=== PATIENT | male | born 1945 | race Caucasian/White ===

== ENCOUNTER 2019-12-04 10:18 | Outpatient (CLI) | payer MEDICARE, BC ==
[2019-12-04 10:47] LABS: Estimated GFR-MDRD - POC Greater than 90
--- NOTE | 2019-12-04 12:15 | CT ---
EXAM: CT chest with IV contrast CT abdomen and pelvis with and without IV contrast HISTORY: Hematuria, renal stones. Reported renal mass. COMPARISON: None FINDINGS: CT THORAX: Lungs: No consolidation, suspicious pulmonary nodule, or mass. Pleura: Suggestion of trace right pleural effusion posterior right cardiophrenic angle versus pleural thickening. Lymph nodes: No lymphadenopathy. Mediastinum: Vascular calcifications are seen in the thoracic aorta as well as involving the coronary arteries. Chest wall: No abnormalities CT ABDOMEN AND PELVIS: Liver: Within normal limits. Gallbladder: Within normal limits. \ Pancreas: Single punctate calcification in the head of the pancreas which may potentially be sequela of prior pancreatitis. Pancreas otherwise has a normal CT appearance. Spleen: Within normal limits. Adrenal glands: Within normal limits. Kidneys: Heterogeneously enhancing mass anterior aspect inferior pole right kidney measuring 4.3 cm c raniocaudal x3.7 cm AP x3.3 cm transverse. This is worrisome for renal cell carcinoma. Approximately 1 to 2 mm nonobstructing calculus is present in the midportion right kidney as well as in the anterior aspect midportion left kidney. A nonobstructing 10 mm calculus is seen in the inferior pole left kidney. A 1.7 cm hypodense lesion is seen in the midportion left kidney demonstrat ing fluid attenuation most compatible with a small cyst. Urinary Bladder: Mild mass effect at the base urinary bladder due to mild enlarged prostate gland whi ch measures 5.7 cm in transverse dimensions. Urinary bladder otherwise demonstrates a normal CT appearance. Bowel: Colonic diverticulosis. Loops of small bowel are normal in caliber. Adenopathy:No lymphadenopathy within the abdomen or pelvis. Peritoneum: There is a slightly heterogeneous hypodense mass with associated calcifications seen in t he right anterolateral aspect of the pelvis measuring 2.2 cm x 1.8 cm in greatest axial dimensions. There is no adjacent retraction of the mesentery. This mass does abut loops of small bowel in the rig ht aspect of the pelvis. Findings may represent a metastatic carcinoid tumor. Sclerosing mesenteritis is a possibility, this is usually located more centrally and there is no adjacent inflam matory changes or retraction of the mesentery. Metastatic lesion is also thought less likely. Abdominal wall: No abnormalities seen. Osseous structures: No suspicious lytic or sclerotic osseous lesion. Degenerative changes are seen in the spine. IMPRESSION: 1. Heterogeneously enhancing inferior pole right renal mass. Renal cell carcinoma is diagnosis of exc lusion. 2. Hypodense and slightly heterogeneous mass with associated calcifications in the right anterolatera l aspect of the pelvis which abuts loops of small bowel. Findings may represent a metastatic carcinoid tumor. Further evaluation with nuclear medicine Octreoscan is recommended. Other differenti al considerations are also a possibility as described above. 3. Nonobstructing bilateral renal calculi.
--- NOTE | 2019-12-04 14:11 | NM ---
WHOLE BODY BONE SCAN: HISTORY: Renal mass suspicious for carcinoma. RADIOPHARMACEUTICAL: 30 mCi technetium 99m-MDP injected intravenously COMPARISON: None CORRELATION: CT chest, abdomen and pelvis dated 12/04/2019. FINDINGS: There scattered degenerative activity in the appendicular skeleton. No other abnormal areas of tracer localization are seen in the skeleton to suggest metastatic disease . Tracer excretion through the kidneys is within normal limits. IMPRESSION: No scintigraphic evidence of osseous metastatic disease.
[2019-12-04] MEDS ORDERED: Iopamidol 370 76% 100 ML VIAL ONE (14:58)
== END 2019-12-04 10:19 | disposition home or self-care (01) ==
LOC: CT 10:18
PROVIDERS: ATTEND Urology
DX: N20.0 Calculus of kidney (principal); N28.89 Other specified disorders of kidney and ureter; R93.89 Abnormal findings on diagnostic imaging of other specified body structures
CPT/HCPCS: 71260; 74178; 78306; 82565; A9503; Q9967

== ENCOUNTER 2020-01-01 12:38 | Outpatient (CLI) | payer MEDICARE, BC ==
--- NOTE | 2020-01-02 15:58 | NM ---
NM Tumor Localization Octreo HISTORY: Right lower quadrant abdominal mass seen on CT scan of 12/04/2019 COMPARISON: CT chest, abdomen and pelvis dated 12/04/2019 Radiopharmaceutical: 5.6 mCi indium-111 labeled pentetreotide FINDINGS: There is physiologic activity in the liver, spleen, kidneys, GI tract. No abnormal areas of tracer lo calization are seen. No abnormal tracer localization is noted in the right lower quadrant/upper pelvic mass seen on the CT scan. IMPRESSION: No evidence of somatostatin avid tumor.
== END 2020-01-01 12:39 | disposition home or self-care (01) ==
LOC: NM 12:38
PROVIDERS: ATTEND Urology
DX: R19.03 Right lower quadrant abdominal swelling, mass and lump (principal)
CPT/HCPCS: 78802; 78803; A4641; A9572

== ENCOUNTER 2020-01-30 06:16 | Outpatient (CLI) | payer MEDICARE, BC ==
--- NOTE | 2020-01-30 11:43 | RAD ---
XR Chest Pa Lat STANDARD HISTORY: Preoperative evaluation COMPARISON: 10/28/2019 FINDINGS: The heart size is normal. The lungs are well expanded without focal areas of consolidation, pneumothorax or pleural effusions. IMPRESSION: No radiographic evidence of acute cardiopulmonary process.
[2020-01-30 12:19] LABS: Hemoglobin 13.2 g/dL (14.0-18.0); Mean Corpuscular HGB CONC 35.2 G/DL (32.0-36.0); Mean Corpuscular Hemoglobin 29.9 PG (27.0-33.0); Mean Corpuscular Volume 84.8 fl (80.0-100.0); Mean Platelet Volume 9.9 fl (7.4-10.4); Platelet Count 229 10x3/uL (130-400); RBC Distribution Width 13.5 % (11.5-14.5); Red Blood Cell (RBC) Count 4.42 10x6/uL (4.40-5.80); White Blood Cell (WBC) Count 5.9 10x3/uL (4.5-11.0)
[2020-01-30 12:28] LABS: Anion Gap 15 mmol/L (10-20); BUN (Urea Nitrogen) 16 mg/dL (8.4-25.7); Calc. Creatinine Clearance 0 mL/min (70-130); Carbon Dioxide 25 mmol/L (23-31); Chloride 101 mmol/L (98-107); Estimated GFR-MDRD 72; Glucose 273 mg/dL (83-110); Potassium 5.4 mmol/L (3.5-5.1); Sodium 136 mmol/L (136-145)
[2020-01-30 12:46] LABS: Bilirubin Neg (Negative); Blood, Urine Negative (Negative); Clarity Clear (Clear); Glucose, Urine (Dipstick) >=1000 mg/dL (Negative); Ketone, Urine Negative (Negative); Leukocyte Negative (Negative); Nitrite Negative (Negative); Protein, Urine (Dipstick) Negative (Neg-Trace); Specific Gravity, Urine 1.025 (1.002-1.036); Urobilinogen Normal mg/dL (Less than 2)
[2020-01-30 12:56] LABS: PTT 26.2 sec (22.0-33.0); Prothrombin Time 10.9 sec (9.5-12.1)
[2020-01-30 12:57] LABS: Bacteria/HPF None Seen HPF (None Seen); RBC/HPF 0-3 HPF (0-3); Squamous Epithelial None Seen HPF (0-3); WBC/HPF None Seen HPF (0-3)
[2020-01-31 12:05] LABS: SARS-CoV-2 MS2 Positive; SARS-CoV-2 N Gene Negative; SARS-CoV-2 S Gene Negative; SARS-CoV-2 by NAA Not Detected (NotDetected); SARS-CoV-2 orf1ab Negative
--- NOTE | 2020-02-05 02:13 | EKG ---
Test Reason : PREOP Blood Pressure : / mmHG Vent. Rate : 054 BPM Atrial Rate : 054 BPM P-R Int : 178 ms QRS Dur : 092 ms QT Int : 448 ms P-R-T Axes : 068 021 002 degrees QTc Int : 424 ms Sinus bradycardia Septal infarct , age undetermined Abnormal ECG When compared with ECG of 28-OCT-2019 07:54, Septal infarct is now Present Confirmed by MIRSOLAVA WOODS, SHADIA ([id number]) on 02/05/2020 2:13:10 AM Referred By: Keke ALAMO Confirmed By:SHADIA COLORADO MD
== END 2020-01-30 06:17 | disposition home or self-care (01) ==
LOC: LABBT 06:16
PROVIDERS: ATTEND Urology
DX: Z01.818 Encounter for other preprocedural examination (principal); Z20.828 Contact with and (suspected) exposure to other viral communicable diseases; N28.89 Other specified disorders of kidney and ureter
CPT/HCPCS: 71046; 80048; 81001; 85027; 85610; 85730; 86850; 86900; 86901; 86920; 87086; 93005; U0003; 87635; 93010

== ENCOUNTER 2020-01-30 11:30 | Inpatient (IN) | payer MEDICARE, BC ==
--- NOTE | 2020-02-01 05:51 | HP ---
HISTORY OF PRESENT ILLNESS: Dell Perez is a 74-year-old male patient from [place]. He had urolithiasis. CAT scan demonstrated a right renal mass, mid anterior. He has seen Dr. Mullen, in fact has appointment to see her this afternoon. Plan is for a right total or heminephrectomy. During his evaluation, he was noted in the right upper pelvis, scan showed a 2.2 x 1.8 cm mass adjacent to the small bowel without distortion of the mesentery. The patient had a colonoscopy in the last year and a half in [place] that was normal. He went on to have a CAT scan of the chest with IV contrast without significant findings except for the mass in the pelvis as described. No evidence of metastatic disease. He had a bone scan that is negative for metastatic disease. He had a nuclear medicine localization octreotide scan, negative for any visualization of somatostatin avid tumor. The patient denies any bowel problems or dysfunction. As stated above, he had a colonoscopy in the last year and a half in [place]. He has had some epigastric discomfort intermittently over the past several years. He has discussed with the opticianry teacher and may have an upper endoscopy in the future. This is not bothering him and not progressive and may esophageal spasm. LABORATORIES: 12/13/2019, comprehensive metabolic profile normal, namely BUN 17, creatinine 1.06. Hemoglobin A1c 7.6. ALLERGIES: NONE. TOBACCO: None. ALCOHOL: Rarely. MEDICATIONS: 1. Metformin 1000 mg a day. 2. Terazosin 10 mg a day. 3. Spironolactone 50 mg a day. 4. Lumigan drops. 5. Combigan drops. PAST MEDICAL HISTORY: Diabetes mellitus, urolithiasis, hypertension. PAST SURGICAL HISTORY: Tonsillectomy, urinary stone removal with stent, right inguinal hernia repair, colonoscopy a year and a half ago in [place]. SOCIAL HISTORY: The patient is retired body shop, wrecking yard work. He lives in [place]. FAMILY HISTORY: Noncontributory. REVIEW OF SYSTEMS: [place]-point noncontributory. Negative cardiac stress test done in the last few weeks by Dr. Ziegler. CARDIAC: Asymptomatic. PHYSICAL EXAMINATION: VITAL SIGNS: Weight 197 pounds, 6 feet 1 inch, and 26 BMI. Blood pressure 134/59, pulse 81, temperature 97.5 degrees. HEAD, EARS, EYES, NOSE, and THROAT: Unremarkable. LUNGS: Clear to auscultation. CARDIAC: Regular rate and rhythm with no murmur, rub, or gallop. ABDOMEN: Soft, nontender. No palpable masses. EXTREMITIES: Unremarkable. No lymphadenopathy in neck, axilla, or groins. ASSESSMENT AND PLAN: 1. Right pelvic mass. This may represent a Meckel diverticulum or other etiology. We would plan exploration at the time of his right catracho or total nephrectomy with Dr. Mullen. Approach possibilities include laparoscopic with small incision versus midline pending discussion with Dr. Mullen. Risks of infection, bleeding, reoperation, anastomotic bowel leakage if performed. He understands and questions answered. 2. Right kidney mass, most likely renal cell carcinoma. Treatment per Dr. Mullen. 3. Diabetes mellitus, type 2. 4. Hypertension. Job ID: [id number]
[2020-02-01 10:54] VITALS: BMI 25.7
[2020-02-04] MEDS ORDERED: Midazolam HCl 2 mg/2 ml Vial ONE (06:33)
[2020-02-04] MEDS ORDERED: Fentanyl 100 MCG/2 ML VIAL ONE (06:33)
[2020-02-04] MEDS ORDERED: Fentanyl 250 MCG/5 ML VIAL ONE (06:39)
[2020-02-04] MEDS ORDERED: Gentamicin 80 MG/2 ML VIAL ONE (06:42)
[2020-02-04] MEDS ORDERED: Methylene Blue 50 MG/10 ML AMPUL ONE (06:43)
[2020-02-04] MEDS ORDERED: Ondansetron HCl/PF 4 MG/2 ML Vial IVP PRN (07:05)
[2020-02-04] MEDS ORDERED: Promethazine HCl 25 MG/ML VIAL SLOW IVP PRN (07:05)
[2020-02-04] MEDS ORDERED: Promethazine HCl 25 MG/ML VIAL IM PRN ×2 (07:05→07:45)
[2020-02-04] MEDS ORDERED: Levofloxacin 500 mg/D5W 100 ml Premix Bag ONE (07:08)
[2020-02-04] MEDS ORDERED: Sodium Chloride 0.9% 0 ML ONE (07:08)
[2020-02-04] MEDS ORDERED: diphenhydrAMINE 50 MG/ML VIAL IM PRN (07:45)
[2020-02-04] MEDS ORDERED: Promethazine HCl 25 MG SUPP PR PRN (07:45)
[2020-02-04] MEDS ORDERED: Naloxone HCl 0.4 mg/ml Vial IVP PRN (07:45)
[2020-02-04] MEDS ORDERED: traMADol HCl 50 MG TAB PO PRN (07:45)
[2020-02-04] MEDS ORDERED: Ondansetron PF 4 MG/2 ML Vial IVP PRN (07:45)
[2020-02-04] MEDS ORDERED: Hydrocerin (Eucerin) Cream 120 gm Jar TOP PRN (07:45)
[2020-02-04] MEDS ORDERED: Zolpidem Tartrate 5 MG TAB PO PRN (07:45)
[2020-02-04] MEDS ORDERED: fentaNYL Citrate/PF 500 MCG, Bupivacaine 10 ML in Sodium Chloride 0.9% 80 ML EPIDURAL SCH (07:45)
[2020-02-04] MEDS ORDERED: Naloxone HCl 0.4 mg/ml Vial IV PRN (07:45)
[2020-02-04] MEDS ORDERED: HYDROcodone/Acetaminophen 5/325 mg Tablet PO PRN (07:45)
[2020-02-04] MEDS ORDERED: Bupivacaine 0.25% HCL 30 ML VIAL ONE (08:04)
[2020-02-04] MEDS ORDERED: SUGAMMADEX SODIUM 500 MG/5 ML VIAL ONE (08:51)
[2020-02-04] MEDS ORDERED: Dextrose 50% Abboject 50 ML SYRINGE SLOW IVP PRN (09:11)
[2020-02-04] MEDS ORDERED: hydrALAZINE 20 MG/ML VIAL SLOW IVP PRN ×2 (09:11)
[2020-02-04] MEDS ORDERED: Dextrose 5% in Water 1,000 ML IV PRN (09:11)
[2020-02-04] MEDS ORDERED: Docusate 100 MG CAP PO PRN (09:11)
[2020-02-04] MEDS ORDERED: Mag-Al 1200 mg/1200 mg/30 ML UDCUP PO PRN (09:11)
[2020-02-04] MEDS ORDERED: Acetaminophen 500 MG TAB PO PRN (09:11)
--- NOTE | 2020-02-04 09:28 | OP ---
DATE OF PROCEDURE: 02/04/2020 PREOPERATIVE DIAGNOSES: 1. A 74-year-old male with history of right mid to lower pole renal mass, measuring 4.3 x 3.7 cm, concerning for renal cell carcinoma. 2. Left lower pole nonobstructing renal calculi, 8 mm. 3. Rule out right lower quadrant pelvic mass. Postoperative diagnosis same Procedure: Right radical nephrectomy. Laparotomy ANESTHESIA: General. ESTIMATED BLOOD LOSS: 300 mL. IV FLUIDS: 1 L. URINE OUTPUT: 125xx COMPLICATIONS: None apparent. DRAINS: 16-Tajik Resendiz catheter to gravity. SPECIMEN: Right kidney contains Gerota's fascia, right proximal ureter. INDICATIONS FOR PROCEDURE AND HISTORY: Mr. Perez is a pleasant 74-year-old male who is well known to me with history of right ureteral calculi, treated and resolved. He was incidentally found to have a right mid to lower pole renal mass. We discussed options of heminephrectomy versus total nephrectomy. He desired more definitive approach simple in nature. We discussed options of right partial versus total nephrectomy and desired more simple approach. Moreover, on further workup, he was found to have a right lower quadrant abdominal mass. This workup demonstrated no evidence for somatostatin avid tumor. General Surgery available for possible small bowel obstruction and presents today for laparotomy and right total radical nephrectomy. Risks and complications of procedure had been discussed with him in detail including, but not limited to: Bleeding, pain, infection, injury to adjacent organs, such as major vasculature, bony prominences, liver bowel contents, chronic renal insufficiency, possible need for permanent and temporary hemodialysis, renal insufficiency, PE, DVT, and perioperative morbidity. All options were discussed with him in detail and he desired to proceed. DESCRIPTION OF PROCEDURE: After an informed consent was signed, the patient was taken to the operating room and placed in supine position with the genital area prepped and draped in the usual surgical sterile fashion. The abdominal areas were formally prepped and draped from the xiphoid to the pubic symphysis. A 16-Tajik indwelling Resendiz catheter was placed. An epidural was placed in the preoperative area. At this time, we made a midline laparotomy incision from the level of the xiphoid to the lower quadrant just distal to the umbilicus. The anterior fascia was opened to the limits of skin incision. We entered the peritoneal cavity. We mobilized the bowel contents and used Bookwalter retractors. Dr. Mattson was present for the laparotomy portion. Please see his dictation for laparotomy portion to rule out pelvic mass. The white line of Toldt was visualized and the colon was mobilized medially to the level of hepatic flexure. The duodenum was Kocherized. The great vessels were identified. We isolated the gonadal vein, which was doubly ligated with 3-0 silk/clips and divided. The ureter was isolated with sharp and blunt dissection and traced to the level of the renal pelvis. The posterior in the upper pole was mobilized with blunt and sharp dissection using LigaSure, cautery as needed. At the end, we further developed the upper pole, what remained was the only attachment went to the hilum was a single artery and vein. Using a laparoscopic stapler with a marin load, we ligated and divided the renal hilum. Staple lines were dry and inspected. FloSeal and hemostatic agents were placed in the renal hilum, which demonstrated good hemostasis. The right adrenal gland was left in situ as the tumor was in the mid to lower pole. The ureter was then completely divided using multiple large clips. The specimen including the proximal ureter, Gerota's content, and the kidney itself was delivered intact. The renal fossa was inspected, demonstrating no acute bleeding of concern. The area was copiously irrigated. The bowel contents were then returned to its normal anatomical position. The incision was then closed with one layer using 0 PDS in a running fashion and skin sammy were utilized for skin. He tolerated the procedure well and transported to the recovery room in stable condition. Job ID: [id number] [facility]
[2020-02-04 10:02] LABS: #Eosinphils 0.1 thou/uL (0.0-0.7); #Monocytes 0.2 thou/uL (0.11-0.59); #Neutrophils 7.5 thou/uL (1.40-6.50); %Basophils 0.3 % (0.0-1.0); %Eosinophils 1.5 % (0.0-10.0); %Lymphocytes 11.6 % (21.0-51.0); %Monocytes 1.8 % (0.0-10.0); %Neutrophils 84.9 % (42.0-75.0); Hemoglobin 12.2 g/dL (14.0-18.0); Mean Corpuscular HGB CONC 34.5 g/dL (32.0-36.0); Mean Corpuscular Hemoglobin 30.8 pg (27.0-31.0); Mean Corpuscular Volume 89.2 fL (78.0-98.0); Mean Platelet Volume 7.4 fL (7.4-10.4); Platelet Count 162 thou/uL (130-400); RBC Distribution Width 13.2 % (11.5-14.5); Red Blood Cell (RBC) Count 3.95 mill/uL (4.70-6.10); White Blood Cell (WBC) Count 8.9 thou/uL (4.8-10.8)
--- NOTE | 2020-02-04 10:08 | OP ---
DATE OF PROCEDURE: 02/04/2020 PREOPERATIVE DIAGNOSES: Pelvic mass, 3 cm, calcific, terminal ileal mesentery; right renal cell carcinoma. POSTOPERATIVE DIAGNOSES: Pelvic mass, 3 cm, calcific, terminal ileal mesentery; right renal cell carcinoma. PROCEDURE PERFORMED: Exploratory laparotomy, noting the small bowel to be without abnormality, appendix was normal, cecum was normal. Hernia plug noted from previous right inguinal hernia repair with a hernia plug mesh dangling in the abdominal cavity. ANESTHESIA: General anesthesia, epidural. TELEGRAPHER AGENT: Dr. Mullen. DESCRIPTION OF PROCEDURE: The patient was taken to the operating room, where under general and epidural anesthesia, abdomen was clipped of hair, prepared with ChloraPrep and draped in routine fashion. Incision was made about the midline, carried through skin and subcutaneous tissue, midline fascia, and abdominal cavity sharply. I then inspected the cecum and small bowel. Small bowel was entirely normal. Mesentery was normal. Appendix was normal. Right colon was normal. The calcific mass described on the CAT scan was not found. He did however have a hernia plug dangling in the abdominal cavity. I did then call the radiologist, and discussed the CAT scan, indeed, this mass found on CAT scan was the hernia plug, further intervention was not necessary. Dr. Mullen then proceeded to perform a right radical nephrectomy, in which I assisted her. At the end of the procedure, fascia closed with #1 PDS, skin with sammy. Sterile dressing applied. The patient tolerated the procedure well. Job ID: [id number]
[2020-02-04 10:19] LABS: Anion Gap 7 mmol/L (10-20); BUN (Urea Nitrogen) 8 mg/dL (8.4-25.7); Calc. Creatinine Clearance 80 mL/min (70-130); Calcium 7.9 mg/dL (7.8-10.44); Carbon Dioxide 29 mmol/L (23-31); Chloride 105 mmol/L (98-107); Estimated GFR-MDRD 71; Glucose 223 mg/dL (83-110); Potassium 5.5 mmol/L (3.5-5.1); Sodium 135 mmol/L (136-145)
[2020-02-04] MEDS ORDERED: Furosemide 40 MG/4 ML VIAL ONE (10:33)
[2020-02-04] MEDS: Sodium Chloride 0.9% 1,000 ML IV SCH ×2 (12:06→21:04)
[2020-02-04] MEDS ORDERED: ePHEDrine 50 MG/ML VIAL ONE (12:07)
[2020-02-04] MEDS ORDERED: Dexamethasone 20 MG/5 ML VIAL ONE (12:07)
[2020-02-04] MEDS ORDERED: Rocuronium Bromide 10 MG/ML (10ML VIAL) ONE (12:07)
[2020-02-04] MEDS ORDERED: PHENYLEPHRINE-NS 100 MCG/ML 10 ML SYRINGE ONE (12:07)
[2020-02-04] MEDS ORDERED: Ondansetron PF 4 MG/2 ML Vial ONE (12:07)
[2020-02-04] MEDS ORDERED: Lidocaine 1% PF 5 ML VIAL ONE (12:07)
[2020-02-04] MEDS ORDERED: Lidocaine 1.5% w/Epi 1:200K 30 ML VIAL (Epid Use) ONE (12:07)
[2020-02-04] MEDS ORDERED: PROPOFOL 200 MG/20 ML VIAL ONE (12:07)
[2020-02-04] MEDS ORDERED: Sodium Chloride 0.9% 100 ML ONE (12:08)
[2020-02-04] MEDS ORDERED: cefTRIAXone\\ROCEPHIN 1 GM VIAL ONE (12:08)
[2020-02-04] MEDS: cefTRIAXone\\ROCEPHIN 1 GM in Sodium Chloride 0.9% 100 ML IVPB SCH (12:10)
[2020-02-04 14:31] LABS: Potassium 4.4 mmol/L (3.5-5.1)
[2020-02-04] MEDS: Insulin Regular 300 UNITS/3 ML VIAL SC PRN (16:57)
--- NOTE | 2020-02-04 17:37 | CON ---
DATE OF CONSULTATION: PRIMARY CARE PHYSICIAN: Dr. Ras Lopez. CHIEF COMPLAINT: Medical management, status post nephrectomy. HISTORY OF PRESENT ILLNESS: The patient is a 74-year-old male with past medical history significant for diabetes mellitus, hypertension, renal mass, and BPH. Today he had a nephrectomy and exploratory lap completed. We have been consulted for medical management of his diabetes and blood pressure. The patient states that his diabetes is well controlled on his home medications. It was noted that his potassium this morning was 5.5, and he is currently on spironolactone. This was changed by Dr. Mullen today to Lasix, which has now resulted in his potassium being 4.4. PAST MEDICAL HISTORY: Diabetes mellitus, urolithiasis, hypertension, gout, renal mass, ED, BPH. PAST SURGICAL HISTORY: Tonsillectomy, urinary stone removal with stent, right inguinal hernia repair, colonoscopy. ALLERGIES: NO KNOWN DRUG ALLERGIES. MEDICATIONS: 1. Gabapentin 600 mg. 2. Terazosin 10 mg. 3. Combigan eye drops twice a day. 4. Lumigan eye drops daily. 5. Metformin 500 mg p.o. daily. 6. Spironolactone 50 mg p.o. daily. SOCIAL HISTORY: The patient lives with his significant other whom he refers to as his . He denies smoking or drug use. He does drink nightly he states. FAMILY HISTORY: Noncontributory to this day. REVIEW OF SYSTEMS: All other review of systems negative unless noted in HPI. PHYSICAL EXAMINATION: VITAL SIGNS: Temperature 97.4, pulse 69, respiratory rate 18, O2 saturation 100% on 2 L, blood pressure 138/74. HEENT: Head; atraumatic, normocephalic. ENT, extraocular muscles intact. PERRLA. NECK: Supple. Trachea midline. CARDIAC: Regular rate and rhythm with no murmur, rub, or gallop. RESPIRATORY: No rhonchi. No wheezes. No rales. Clear to auscultation bilaterally. ABDOMEN: Soft, tender at surgical site. Midline abdominal incision. EXTREMITIES: No edema. No cyanosis. LABORATORY DATA: Sodium 135, potassium 5.5, anion gap 7, BUN 8, glucose 223, calcium 7.9. WBCs 8.9, hemoglobin 12.2, hematocrit 35.3. EKG shows sinus valerie at 54 beats per minute. IMPRESSION AND PLAN: 1. Hyperkalemia, acute. This has since resolved. The patient has been changed from spironolactone to Lasix 40 mg daily. When discussing with the patient, he states that he was started on the spironolactone for hypertension. However, he states that his blood pressure has been a lot better now that the stressors in his life have changed, may be worth considering in the future coming off the diuretic entirely if it is no longer needed. However, we will continue to follow him on his Lasix and see how he does with his blood pressures and his potassium levels while here. We will recheck his levels in the morning. 2. Hypertension, chronic. Vital signs currently stable at this time. We will continue to monitor vital signs throughout stay. Treat with home medications and any p.r.n. antihypertensives if needed. 3. Diabetes mellitus type 2. Monitor Accu-Cheks a.c. at bedtime. Cover with mild sliding scale insulin if necessary. Restart the patient's home medication while he is here in the hospital. 4. SCDs have been ordered for deep venous thrombosis prophylaxis. 5. The patient wishes to be a full code. His surrogate decision maker is his significant other, Preethi Diana. 6. This patient has been discussed with Dr. Sanchez. Job ID: [id number] [facility]
[2020-02-04] MEDS ORDERED: Insulin Regular 300 UNITS/3 ML VIAL SC PRN (18:02)
[2020-02-04] MEDS: Timolol 0.5% Ophth Soln 5 ml Bottle EA EYE SCH (21:03)
[2020-02-04] MEDS: Brimonidine Tartrate 0.2% Ophth Soln 5 ml Bottle EA EYE SCH (21:04)
[2020-02-04] MEDS: diphenhydrAMINE 25 MG CAP PO PRN (21:14)
[2020-02-05] MEDS: HYDROcodone/Acetaminophen 5/325 mg Tablet PO PRN ×3 (03:25→23:27)
[2020-02-05] MEDS: Sodium Chloride 0.9% 1,000 ML IV SCH ×2 (03:28→11:36)
[2020-02-05 05:43] LABS: #Monocytes 0.8 thou/uL (0.11-0.59); #Neutrophils 8.7 thou/uL (1.40-6.50); %Basophils 0.3 % (0.0-1.0); %Eosinophils 0.1 % (0.0-10.0); %Lymphocytes 9.5 % (21.0-51.0); %Monocytes 7.8 % (0.0-10.0); %Neutrophils 82.3 % (42.0-75.0); Hemoglobin 11.2 g/dL (14.0-18.0); Mean Corpuscular HGB CONC 33.7 g/dL (32.0-36.0); Mean Corpuscular Hemoglobin 30.1 pg (27.0-31.0); Mean Corpuscular Volume 89.1 fL (78.0-98.0); Mean Platelet Volume 8.2 fL (7.4-10.4); Platelet Count 169 thou/uL (130-400); RBC Distribution Width 13.1 % (11.5-14.5); Red Blood Cell (RBC) Count 3.73 mill/uL (4.70-6.10); White Blood Cell (WBC) Count 10.5 thou/uL (4.8-10.8)
[2020-02-05 06:02] LABS: Anion Gap 12 mmol/L (10-20); BUN (Urea Nitrogen) 15 mg/dL (8.4-25.7); Calc. Creatinine Clearance 58 mL/min (70-130); Calcium 7.9 mg/dL (7.8-10.44); Carbon Dioxide 27 mmol/L (23-31); Chloride 101 mmol/L (98-107); Estimated GFR-MDRD 48; Glucose 157 mg/dL (83-110); Potassium 4.5 mmol/L (3.5-5.1); Sodium 135 mmol/L (136-145)
[2020-02-05] MEDS ORDERED: Spironolactone 25 MG TAB PO SCH ×2 (08:00→09:00)
--- NOTE | 2020-02-05 08:01 | PRG ---
DATE OF SERVICE: 02/05/2020 SUBJECTIVE: The patient without complaints, required [place] adjunct to his fentanyl and epidural. Pain is adequately controlled. Denies nausea or vomiting. No flatus. Tolerating clears. OBJECTIVE: VITAL SIGNS: Stable at temperature 98.5, heart rate 60, respirations 16, O2 saturations 96%, blood pressure 128/67. I's and O's 1330 in and 2125 out, he is -790 mL. GENERAL: The patient is in no acute distress. HEART: Regular rate. LUNGS: Clear. ABDOMEN: Soft, mildly distended. Incision is clean, dry. Per nursing staff, the inferior aspect of the incision was draining some serosanguineous fluid. I could not actively express further discharge. Minimal oozing noted. Dressing reapplied. Bowel sounds are present, however, diminished. EXTREMITIES: No cyanosis, clubbing, or edema. No calf tenderness appreciated. LABORATORY DATA: White count is 10, hemoglobin 11.2, platelet 169. Potassium yesterday was 5.5, this morning is 4.5; creatinine 1.43. Blood sugars running in 200s to 140s. IMPRESSION AND PLAN: 1. Mr. Perez is a 74-year-old male, postop day #1 exploratory laparotomy, right radical nephrectomy. Pelvic mass has been ruled out, pain on prior CT. Pathology pending. 2. History of diabetes. 3. Hypertension. 4. Hyperkalemia, resolved. Appreciate hospitalist consult. I did transition from spironolactone, potassium-sparing diuretic to Lasix yesterday due to hyperkalemia. He is currently on Lasix 40 mg. If he does not require Lasix, it would be preferable, appreciate hospitalist monitoring his blood pressure for continuing diuretics if needed. I would prefer the patient off Lasix, if possible prefer hydrochlorothiazide as he does have history of recurrent kidney stone as Lasix does cause hypercalciuria. will continue epidural and titrate accordingly per Pain Service. Continue clear liquids for now. His bowel sounds are somewhat sluggish. patient is to be aggressively out of bed, walking program has been consulted. If there is mild decrease in H and H, we will hold off Lovenox for deep venous thrombosis pharmacologic prophylaxis. Continue SCDs, EMANI solano, aggressively out of bed. surgically stable. Job ID: [id number] [facility]
[2020-02-05] MEDS: diphenhydrAMINE 50 MG/ML VIAL IVP PRN ×2 (08:25→14:23)
[2020-02-05] MEDS: Terazosin HCl 5 MG CAP PO SCH (08:29)
[2020-02-05] MEDS: Timolol 0.5% Ophth Soln 5 ml Bottle EA EYE SCH ×2 (08:29→20:14)
[2020-02-05] MEDS: metFORMIN 500 MG TAB PO SCH (08:29)
[2020-02-05] MEDS: Brimonidine Tartrate 0.2% Ophth Soln 5 ml Bottle EA EYE SCH ×2 (08:30→20:14)
[2020-02-05] MEDS ORDERED: Non-Formulary Item 1 EACH (Bimatoprost [Lumigan] 5 ML Drops) EA EYE SCH (09:00)
[2020-02-05] MEDS ORDERED: Furosemide 40 MG TAB PO SCH (09:00)
[2020-02-05] MEDS ORDERED: Non-Formulary Item 1 EACH (Spironolactone [Spironolactone] 50 MG Tablet) PO SCH (09:00)
[2020-02-05] MEDS ORDERED: TERAZOSIN HCL 10 MG PO SCH (09:00)
[2020-02-05] MEDS ORDERED: Latanoprost 0.005% Ophth Soln 2.5 ml Bottle EA EYE SCH (09:00)
[2020-02-05] MEDS ORDERED: FLU VACC QS2020-21(65YR UP)/PF 240 MCG/0.7 ML SYRINGE IM ONE (09:00)
--- NOTE | 2020-02-05 10:28 | PDOC.EVN ---
Event Note - Event Note Event Note: Patient was seen. I called his PCP, Dr. Ras Lopez. He confirmed that the patient has no specific indication for a diuretic. He reported the patient had very mild BP issues and is primarily on Terazosin for BP control and mild BPH symptoms. The aldactone was simply to subtly augment that. He is completely comfortable with stopping diuretics. If his BP necessitates additional meds, could consider amlodipine 2.5 mg po q day. DC Lasix and monitor BP.
--- NOTE | 2020-02-05 11:03 | PDOC.HOSPP ---
- Subjective Encounter Date: 02/05/20 Encounter Time: 09:10 Subjective: Patient is seen today for medical management consult after radical nephrectomy for hypertension and diabetes type 2. Patient states he is feeling well and has less abdominal pain than yesterday. He is complaining of itchiness to his back, nursing is already given him IV Benadryl prior to my arrival. - Objective Vital Signs & Weight: Vital Signs (12 hours) Temp Pulse Resp BP Pulse Ox 02/05/20 08:29 54 L 02/05/20 08:00 98.0 F 54 L 16 144/67 H 97 02/05/20 03:28 98.5 F 68 16 128/67 96 02/04/20 23:19 98.0 F 73 16 127/64 96 Weight Weight 195 lb I&O: 02/04/20 02/05/20 02/06/20 06:59 06:59 06:59 Intake Total 1330 Output Total 2125 Balance -795 Result Diagrams: 02/05/20 05:07 02/05/20 05:07 Additional Labs: Accuchecks 02/05/20 02/04/20 02/04/20 05:27 20:47 15:41 POC Glucose 146 H 226 H 231 H Hospitalist ROS - Medication Medications: Active Medications Generic Name Dose Route Start Last Admin Trade Name Freq PRN Reason Stop Dose Admin Hydrocodone Bitart/Acetaminophen 2 tab 02/04/20 07:45 02/05/20 03:25 Hydrocodone/Acetaminophen 5/325 Mg Tablet PO 2 tab Q4H PRN Administration For Moderate Pain 4-6 Brimonidine Tartrate 1 drop 02/04/20 21:00 02/05/20 08:30 Brimonidine Tartrate 0.2% Ophth Soln 5 Ml Bottle EA EYE 1 drop BID TONI Administration Diphenhydramine HCl 25 mg 02/04/20 07:45 02/04/20 21:14 Diphenhydramine 25 Mg Cap PO 25 mg Q3H PRN Administration Itching Diphenhydramine HCl 25 mg 02/04/20 07:45 02/05/20 08:25 Diphenhydramine 50 Mg/Ml Vial IVP 25 mg Q3H PRN Administration Itching Fentanyl Citrate 500 mcg/ 100 mls @ 0 mls/hr 02/04/20 07:45 02/05/20 01:57 Bupivacaine HCl 10 ml/ Sodium EPIDURAL 100 mls Chloride INF TONI Administration As Directed Sodium Chloride 1,000 mls @ 100 mls/hr 02/04/20 09:15 02/05/20 03:28 Normal Saline 0.9% IV 1,000 mls .Q10H TONI Administration Ceftriaxone Sodium 1 gm/ 100 mls @ 200 mls/hr 02/04/20 10:00 02/04/20 12:10 Sodium Chloride IVPB 100 mls Q24HR TONI Administration Insulin Human Regular 0 units 02/04/20 09:11 02/04/20 16:57 Insulin Regular 300 Units/3 Ml Vial SC 4 unit .MODERATE SLIDING SC PRN Administration Moderate Correctional Scale Insulin Human Regular 0 units 02/04/20 18:02 02/04/20 21:07 Insulin Regular 300 Units/3 Ml Vial SC 2 mg .BEDTIME SLIDING SC PRN Administration Bedtime Correctional Scale Metformin HCl 500 mg 02/05/20 09:00 02/05/20 08:29 Metformin 500 Mg Tab PO 500 mg DAILY TONI Administration Terazosin HCl 10 mg 02/05/20 09:00 02/05/20 08:29 Terazosin Hcl 5 Mg Cap PO 10 mg QAM TONI Administration Timolol Maleate 1 drop 02/04/20 21:00 02/05/20 08:29 Timolol 0.5% Ophth Soln 5 Ml Bottle EA EYE 1 drop BID TONI Administration - Exam General Appearance: NAD, awake alert Heart: RRR, no murmur, no gallops, no rubs Respiratory: CTAB, no wheezes, no rales, no ronchi Gastrointestinal: soft, non-distended, normal bowel sounds Gastrointestinal - other findings: tender at incision site Psychiatric: normal affect, normal behavior Hosp A/P (1) HTN (hypertension) Code(s): I10 - ESSENTIAL (PRIMARY) HYPERTENSION Status: Chronic Plan: Continue to monitor blood pressures every 4 hours Would like to stop diuretic altogether, will reach out to PCP today to see how he feels regarding this Blood pressures have been stable throughout the duration of hospital stay (2) Hyperkalemia Code(s): E87.5 - HYPERKALEMIA Status: Resolved (3) DM type 2 (diabetes mellitus, type 2) Status: Chronic Plan: Continue monitor Accu-Cheks AC at bedtime Most recent blood sugars in the 140s Sliding scale insulin available if necessary
[2020-02-05] MEDS: cefTRIAXone\\ROCEPHIN 1 GM in Sodium Chloride 0.9% 100 ML IVPB SCH (11:34)
[2020-02-05] MEDS: Bupivacaine 10 ML in Sodium Chloride 0.9% 90 ML EPIDURAL SCH (12:49)
--- NOTE | 2020-02-05 16:45 | PRG ---
DATE OF SERVICE: SUBJECTIVE: Mr. Perez is doing well today status post right nephrectomy. Findings of the operation were that the density seen on CAT scan suspicious for a small bowel mass, for which also a nuclear medicine scan was performed looking for Meckel's and was unremarkable. The mass was found intraoperatively to be a mesh plug from an inguinal hernia repair. There is no bowel mass. Patient is status post nephrectomy. Dr. Mullen has increased him on clear liquids and patient has good pain control. At this point, I will see him as needed. Job ID: [id number]
[2020-02-05] MEDS: Insulin Regular 300 UNITS/3 ML VIAL SC PRN (17:46)
[2020-02-05] MEDS: traMADol HCl 50 MG TAB PO PRN (17:48)
[2020-02-05] MEDS: Latanoprost 0.005% Ophth Soln 2.5 ml Bottle EA EYE SCH (20:14)
[2020-02-05] MEDS: diphenhydrAMINE 25 MG CAP PO PRN (23:27)
[2020-02-06] MEDS: Bupivacaine 10 ML in Sodium Chloride 0.9% 90 ML EPIDURAL SCH ×2 (00:34→13:22)
[2020-02-06] MEDS: HYDROcodone/Acetaminophen 5/325 mg Tablet PO PRN ×2 (05:27→09:12)
[2020-02-06 05:33] LABS: #Eosinphils 0.2 thou/uL (0.0-0.7); #Lymphocytes 1.3 thou/uL (1.20-3.40); #Monocytes 0.5 thou/uL (0.11-0.59); #Neutrophils 5.1 thou/uL (1.40-6.50); %Basophils 0.2 % (0.0-1.0); %Eosinophils 2.4 % (0.0-10.0); %Lymphocytes 18.8 % (21.0-51.0); %Monocytes 6.3 % (0.0-10.0); %Neutrophils 72.4 % (42.0-75.0); Hemoglobin 10.6 g/dL (14.0-18.0); Mean Corpuscular HGB CONC 34.5 g/dL (32.0-36.0); Mean Corpuscular Hemoglobin 30.7 pg (27.0-31.0); Mean Corpuscular Volume 89.1 fL (78.0-98.0); Mean Platelet Volume 7.6 fL (7.4-10.4); Platelet Count 139 thou/uL (130-400); Red Blood Cell (RBC) Count 3.45 mill/uL (4.70-6.10); White Blood Cell (WBC) Count 7.1 thou/uL (4.8-10.8)
[2020-02-06 05:57] LABS: Anion Gap 11 mmol/L (10-20); BUN (Urea Nitrogen) 17 mg/dL (8.4-25.7); Calc. Creatinine Clearance 54 mL/min (70-130); Calcium 7.7 mg/dL (7.8-10.44); Carbon Dioxide 26 mmol/L (23-31); Chloride 100 mmol/L (98-107); Estimated GFR-MDRD 45; Glucose 127 mg/dL (83-110); Sodium 133 mmol/L (136-145)
[2020-02-06] MEDS: traMADol HCl 50 MG TAB PO PRN ×2 (07:18→20:55)
--- NOTE | 2020-02-06 07:46 | PRG ---
DATE OF SERVICE: 02/06/2020 SUBJECTIVE: Tolerating clears. Has good appetite. Has passed flatus early this morning. Relates that he required [place] due to abdominal discomfort. Otherwise, the patient has been ambulating aggressively. Appreciate hospitalist recommendations regarding diuretics and hypertensive control. OBJECTIVE: VITAL SIGNS: Stable at temperature 98.2, heart rate 75, respirations 18, O2 saturations 93%, blood pressure variable from 125/60 to 152/64. His highest blood pressure is 169/74. I's and O's 3400 in and 3100 out. He is positive 300 mL. Urine output 3100 mL, clear, dilute. GENERAL: The patient is in no acute distress. HEART: Regular rate. LUNGS: Clear. ABDOMEN: Demonstrates mild distention. Incision is clean, dry, and intact. No ecchymosis. Bowel sounds are active and improved from yesterday. EXTREMITIES: No cyanosis, clubbing, or edema. No calf tenderness appreciated. Bilateral EMANI hose SCDs remains in place while the patient is in bed. PERTINENT LABORATORY DATA: White count 7, hemoglobin 10.6, platelet 139. Sodium 133, creatinine 1.5. Blood sugars running 170 to 120s. IMPRESSION AND PLAN: 1. Mr. Perez is a pleasant 74-year-old male, postop day #2, status post right nephrectomy, exploratory laparotomy. 2. History of left lower pole renal calculi, nonobstructing on observation. 3. History of hypertension. Plan: recheck an H and H this afternoon as there is a slow decreasing trend. He is hemodynamically stable. Urine output remains clear. Acute renal insufficiency anticipated as he recently underwent right nephrectomy. As he does have intermittent hypertension, will initiate low-dose amlodipine 2.5 mg one p.o. daily. hold Lovenox for now, continue bilateral EMANI hose SCDs. patient is on walking program to be aggressively out of bed. advance diet as tolerated. Importance of ambulation, incentive spirometry reinforced. Continue epidural, pain management. Limited use of narcotic discussed with the patient if possible. Informed the patient will be discharged if pain is controlled off epidural, tolerating regular diet, and labs are stable. Job ID: [id number] [facility]
[2020-02-06] MEDS: Timolol 0.5% Ophth Soln 5 ml Bottle EA EYE SCH ×2 (08:05→20:58)
[2020-02-06] MEDS: Terazosin HCl 5 MG CAP PO SCH (08:05)
[2020-02-06] MEDS: Amlodipine 5 MG TAB PO SCH (08:06)
[2020-02-06] MEDS: metFORMIN 500 MG TAB PO SCH (08:08)
[2020-02-06] MEDS: Brimonidine Tartrate 0.2% Ophth Soln 5 ml Bottle EA EYE SCH ×2 (08:08→20:58)
--- NOTE | 2020-02-06 09:56 | PDOC.HOSPP ---
- Subjective Encounter Date: 02/06/20 Encounter Time: 09:05 Subjective: Patient is seen today for medical management consultation after radical nephrectomy. Consultation is for hypertension and diabetes type 2. Patient appears tired today and said he has not had much sleep. He states he still has some itchiness to his back even after the fentanyl was stopped. Also having some tenderness to his abdomen at incision site,, has received pain medication this morning. - Objective Vital Signs & Weight: Vital Signs (12 hours) Temp Pulse Resp BP BP Pulse Ox 02/06/20 08:06 162/73 H 02/06/20 08:05 162/73 H 02/06/20 07:27 97.9 F 70 16 162/73 H 95 02/06/20 03:08 98.2 F 75 18 152/64 H 93 L 02/05/20 23:24 98.0 F 69 16 125/62 93 L Weight Weight 195 lb I&O: 02/05/20 02/06/20 02/07/20 06:59 06:59 06:59 Intake Total 1330 3400 Output Total 2125 3100 Balance -795 300 Result Diagrams: 02/06/20 05:12 02/06/20 05:12 Additional Labs: Accuchecks 02/06/20 02/05/20 02/05/20 05:37 20:51 17:08 POC Glucose 120 H 158 H 175 H Hospitalist ROS - Medication Medications: Active Medications Generic Name Dose Route Start Last Admin Trade Name Freq PRN Reason Stop Dose Admin Hydrocodone Bitart/Acetaminophen 1 tab 02/04/20 07:45 02/05/20 15:22 Hydrocodone/Acetaminophen 5/325 Mg Tablet PO 1 tab Q4H PRN Administration Mild Pain 1-3 Hydrocodone Bitart/Acetaminophen 2 tab 02/04/20 07:45 02/06/20 09:12 Hydrocodone/Acetaminophen 5/325 Mg Tablet PO 2 tab Q4H PRN Administration For Moderate Pain 4-6 Amlodipine Besylate 2.5 mg 02/06/20 09:00 02/06/20 08:06 Amlodipine 5 Mg Tab PO 2.5 mg DAILY TONI Administration Brimonidine Tartrate 1 drop 02/04/20 21:00 02/06/20 08:08 Brimonidine Tartrate 0.2% Ophth Soln 5 Ml Bottle EA EYE 1 drop BID TONI Administration Diphenhydramine HCl 25 mg 02/04/20 07:45 02/05/20 23:27 Diphenhydramine 25 Mg Cap PO 25 mg Q3H PRN Administration Itching Diphenhydramine HCl 25 mg 02/04/20 07:45 02/05/20 14:23 Diphenhydramine 50 Mg/Ml Vial IVP 25 mg Q3H PRN Administration Itching Bupivacaine HCl 10 ml/ Sodium 100 mls @ 8 mls/hr 02/05/20 11:45 02/06/20 00:34 Chloride EPIDURAL 100 mls INF TONI Administration As Directed Insulin Human Regular 0 units 02/04/20 09:11 02/05/20 17:46 Insulin Regular 300 Units/3 Ml Vial SC 2 unit .MODERATE SLIDING SC PRN Administration Moderate Correctional Scale Insulin Human Regular 0 units 02/04/20 18:02 02/04/20 21:07 Insulin Regular 300 Units/3 Ml Vial SC 2 mg .BEDTIME SLIDING SC PRN Administration Bedtime Correctional Scale Latanoprost 1 drop 02/05/20 21:00 02/05/20 20:14 Latanoprost 0.005% Ophth Soln 2.5 Ml Bottle EA EYE Not Given HS TONI Metformin HCl 500 mg 02/05/20 09:00 02/06/20 08:08 Metformin 500 Mg Tab PO 500 mg DAILY TONI Administration Terazosin HCl 10 mg 02/05/20 09:00 02/06/20 08:05 Terazosin Hcl 5 Mg Cap PO 10 mg QAM TONI Administration Timolol Maleate 1 drop 02/04/20 21:00 02/06/20 08:05 Timolol 0.5% Ophth Soln 5 Ml Bottle EA EYE 1 drop BID TONI Administration Tramadol HCl 100 mg 02/04/20 07:45 02/06/20 07:18 Tramadol Hcl 50 Mg Tab PO 100 mg Q6H PRN Administration Moderate Pain 4-6 - Exam General Appearance: NAD, awake alert General - other findings: tired appearing today Heart: RRR, no murmur, no gallops, no rubs, normal peripheral pulses Respiratory: CTAB, no wheezes, no rales, no ronchi Gastrointestinal: soft, non-distended, tender to palpation Psychiatric: normal behavior Hosp A/P (1) HTN (hypertension) Code(s): I10 - ESSENTIAL (PRIMARY) HYPERTENSION Status: Chronic (2) Hyperkalemia Code(s): E87.5 - HYPERKALEMIA Status: Resolved (3) DM type 2 (diabetes mellitus, type 2) Status: Chronic - Plan Diuretics stopped yesterday, low-dose Norvasc has been started todaycontinue to monitor blood pressures Monitor Accu-Cheks AC at bedtime with sliding scale insulin as needed No BM as of yet, currently tolerating full liquid diet Encourage ambulation
[2020-02-06] MEDS ORDERED: HYDROcodone/Acetaminophen 10/325 mg Tablet PO PRN (12:23)
[2020-02-06] MEDS: Insulin Regular 300 UNITS/3 ML VIAL SC PRN ×2 (13:22→17:33)
[2020-02-06] MEDS: HYDROcodone/Acetaminophen 10/325 mg Tablet PO PRN (13:29)
[2020-02-06 13:58] LABS: Hemoglobin 11.2 g/dL (14.0-18.0)
[2020-02-06] MEDS: diphenhydrAMINE 50 MG/ML VIAL IVP PRN (15:28)
[2020-02-06] MEDS ORDERED: Bisacodyl 10 MG SUPP PR SCH (17:00)
[2020-02-06] MEDS: Latanoprost 0.005% Ophth Soln 2.5 ml Bottle EA EYE SCH (20:58)
[2020-02-07] MEDS: Bupivacaine 10 ML in Sodium Chloride 0.9% 90 ML EPIDURAL SCH (01:23)
[2020-02-07 05:23] LABS: #Eosinphils 0.1 thou/uL (0.0-0.7); #Lymphocytes 1.1 thou/uL (1.20-3.40); #Monocytes 0.5 thou/uL (0.11-0.59); #Neutrophils 5.1 thou/uL (1.40-6.50); %Basophils 0.5 % (0.0-1.0); %Eosinophils 1.8 % (0.0-10.0); %Lymphocytes 15.7 % (21.0-51.0); %Monocytes 6.6 % (0.0-10.0); %Neutrophils 75.3 % (42.0-75.0); Hemoglobin 10.8 g/dL (14.0-18.0); Mean Corpuscular HGB CONC 32.6 g/dL (32.0-36.0); Mean Corpuscular Hemoglobin 28.8 pg (27.0-31.0); Mean Corpuscular Volume 88.3 fL (78.0-98.0); Mean Platelet Volume 7.9 fL (7.4-10.4); Platelet Count 168 thou/uL (130-400); RBC Distribution Width 12.8 % (11.5-14.5); Red Blood Cell (RBC) Count 3.75 mill/uL (4.70-6.10); White Blood Cell (WBC) Count 6.8 thou/uL (4.8-10.8)
[2020-02-07 05:39] LABS: Anion Gap 13 mmol/L (10-20); BUN (Urea Nitrogen) 18 mg/dL (8.4-25.7); Calc. Creatinine Clearance 56 mL/min (70-130); Carbon Dioxide 28 mmol/L (23-31); Chloride 96 mmol/L (98-107); Estimated GFR-MDRD 47; Glucose 151 mg/dL (83-110); Potassium 3.8 mmol/L (3.5-5.1); Sodium 133 mmol/L (136-145)
--- NOTE | 2020-02-07 07:34 | PRG ---
DATE OF SERVICE: 02/07/2020 SUBJECTIVE: Patient tolerating regular diet, has had multiple bowel movements, passing large amount of flatus. He has no nausea. patient continues to be on epidural [place] 10/325 per Pain Service. OBJECTIVE: VITAL SIGNS: Stable. He is afebrile, 98, 90, 18, 142/72, intermittent hypertension. 183/83. GENERAL: The patient is in no acute distress. HEART: Regular rate. LUNGS: Clear. ABDOMEN: Soft, mildly distended. Bowel sounds are active. Incision is intact with no active discharge appreciated. His subjective discomfort is in the right paramedian incision line, there is no rigidity. No rebound. Resendiz remains in place with clear yellow urine. EXTREMITIES: No cyanosis, clubbing, or edema. No calf tenderness, edema appreciated. LABORATORY DATA: White count 6.8, hemoglobin 10.8, platelet 168. Renal function stable with creatinine of 1.48. IMPRESSION AND PLAN: 1. Mr. Perez is a 74-year-old male, postop day #3, status post right radical nephrectomy, exploratory laparotomy by General Surgery to rule out right lower quadrant pelvic mass. 2. History of diabetes. 3. Hypertension. 4. He has been initiated amlodipine 2.5, will consider increasing to 5 mg one p.o. daily if he has persistent hypertension of concern. He remained surgically stable, pain control remains an issue. His lab, physical exam is grossly unremarkable . Incisional discomfort with no rigidity, no rebound. Informed him that if we are transitioning him to be discharged home, epidural should be discontinued and monitor for tolerability with p.o. pain medication and he agrees. discontinue epidural, continue [place], tramadol. Toradol contraindicated due to recent nephrectomy and renal insufficiency as anticipated. He remains to be aggressively out of bed, Resendiz will be discontinued once epidural discontinued. Continue Hytrin for hypertension, BPH. Job ID: [id number] [facility]
[2020-02-07] MEDS: Terazosin HCl 5 MG CAP PO SCH (08:16)
[2020-02-07] MEDS: metFORMIN 500 MG TAB PO SCH (08:17)
[2020-02-07] MEDS: Timolol 0.5% Ophth Soln 5 ml Bottle EA EYE SCH ×2 (08:17→21:59)
[2020-02-07] MEDS: Amlodipine 5 MG TAB PO SCH (08:17)
[2020-02-07] MEDS: Brimonidine Tartrate 0.2% Ophth Soln 5 ml Bottle EA EYE SCH ×2 (08:18→21:59)
[2020-02-07] MEDS: Insulin Regular 300 UNITS/3 ML VIAL SC PRN ×2 (11:46→17:20)
[2020-02-07] MEDS: traMADol HCl 50 MG TAB PO PRN ×2 (13:07→20:01)
--- NOTE | 2020-02-07 19:31 | PDOC.HOSPP ---
- Subjective Encounter Date: 02/07/20 Encounter Time: 19:30 Subjective: Patient seen for follow-up for medical management post radical nephrectomy. He states he has been ambulating around the nurses station and is able to have a bowel movement today. His blood pressure is still remaining on the higher side in the 140s to 160s systolically. Blood sugars were also higher today ranging from 150-190. - Objective Vital Signs & Weight: Vital Signs (12 hours) Temp Pulse Resp BP BP Pulse Ox 02/07/20 16:11 98.3 F 79 18 160/73 H 95 02/07/20 11:40 98.5 F 72 20 153/71 H 97 02/07/20 08:18 96 02/07/20 08:17 100 162/88 H 02/07/20 08:02 98.3 F 100 14 162/88 H 96 Weight Weight 195 lb I&O: 02/06/20 02/07/20 02/08/20 06:59 06:59 06:59 Intake Total 3400 250 1100 Output Total 3100 1700 1150 Balance 300 -1450 -50 Result Diagrams: 02/07/20 04:40 02/07/20 04:40 Additional Labs: Accuchecks 02/07/20 02/07/20 02/07/20 16:08 11:35 05:41 POC Glucose 171 H 190 H 150 H 02/06/20 20:43 POC Glucose 131 H Hospitalist ROS - Medication Medications: Active Medications Generic Name Dose Route Start Last Admin Trade Name Freq PRN Reason Stop Dose Admin Acetaminophen 500 mg 02/04/20 09:11 02/06/20 23:27 Acetaminophen 500 Mg Tab PO 500 mg Q4H PRN Administration NDIAYE/Fever > 101F/mild pain(1-3) Hydrocodone Bitart/Acetaminophen 2 tab 02/06/20 12:23 02/06/20 13:29 Hydrocodone/Acetaminophen 10/325 Mg Tablet PO 2 tab Q4H PRN Administration Pain 5-10 Amlodipine Besylate 2.5 mg 02/06/20 09:00 02/07/20 08:17 Amlodipine 5 Mg Tab PO 2.5 mg DAILY TONI Administration Brimonidine Tartrate 1 drop 02/04/20 21:00 02/07/20 08:18 Brimonidine Tartrate 0.2% Ophth Soln 5 Ml Bottle EA EYE 1 drop BID TONI Administration Diphenhydramine HCl 25 mg 02/04/20 07:45 02/05/20 23:27 Diphenhydramine 25 Mg Cap PO 25 mg Q3H PRN Administration Itching Diphenhydramine HCl 25 mg 02/04/20 07:45 02/06/20 15:28 Diphenhydramine 50 Mg/Ml Vial IVP 25 mg Q3H PRN Administration Itching Insulin Human Regular 0 units 02/04/20 09:11 02/07/20 17:20 Insulin Regular 300 Units/3 Ml Vial SC 2 unit .MODERATE SLIDING SC PRN Administration Moderate Correctional Scale Insulin Human Regular 0 units 02/04/20 18:02 02/04/20 21:07 Insulin Regular 300 Units/3 Ml Vial SC 2 mg .BEDTIME SLIDING SC PRN Administration Bedtime Correctional Scale Latanoprost 1 drop 02/05/20 21:00 02/06/20 20:58 Latanoprost 0.005% Ophth Soln 2.5 Ml Bottle EA EYE Not Given HS TONI Metformin HCl 500 mg 02/05/20 09:00 02/07/20 08:17 Metformin 500 Mg Tab PO 500 mg DAILY TONI Administration Ondansetron HCl 4 mg 02/04/20 07:45 02/06/20 23:27 Ondansetron Pf 4 Mg/2 Ml Vial IVP 4 mg Q6H PRN Administration Nausea/Vomiting Terazosin HCl 10 mg 02/05/20 09:00 02/07/20 08:16 Terazosin Hcl 5 Mg Cap PO 10 mg QAM TONI Administration Timolol Maleate 1 drop 02/04/20 21:00 02/07/20 08:17 Timolol 0.5% Ophth Soln 5 Ml Bottle EA EYE 1 drop BID TONI Administration Tramadol HCl 100 mg 02/04/20 07:45 02/07/20 13:07 Tramadol Hcl 50 Mg Tab PO 100 mg Q6H PRN Administration Moderate Pain 4-6 - Exam General Appearance: NAD, awake alert ENT: normocephalic atraumatic, moist mucosa Neck: supple Heart: RRR, no murmur, no gallops, normal peripheral pulses Respiratory: CTAB, no wheezes, no rales, no ronchi, normal chest expansion, no tachypnea Gastrointestinal: soft, non-distended, normal bowel sounds, no guarding, tender to palpation Extremities: no edema Skin: normal turgor Psychiatric: normal affect, normal behavior Hosp A/P (1) HTN (hypertension) Code(s): I10 - ESSENTIAL (PRIMARY) HYPERTENSION Status: Chronic (2) Hyperkalemia Code(s): E87.5 - HYPERKALEMIA Status: Resolved (3) DM type 2 (diabetes mellitus, type 2) Status: Chronic - Plan Diuretics stopped 02/05/2020, low-dose Norvasc has been started yesterdayblood pressure still running high systolic, patient thinks it may be due to pain after ambulating, will be receiving another pain medication dose shortly Monitor Accu-Cheks AC at bedtime with sliding scale insulin as needed Tolerating diet well, passing flatus and had bowel movement today Encourage ambulationpatient states he walked around the entire nurses station, states he is doing well
[2020-02-07] MEDS ORDERED: Amlodipine 5 MG TAB PO SCH (20:00)
[2020-02-07] MEDS: Latanoprost 0.005% Ophth Soln 2.5 ml Bottle EA EYE SCH (21:59)
[2020-02-08] MEDS: traMADol HCl 50 MG TAB PO PRN (02:09)
[2020-02-08] MEDS: HYDROcodone/Acetaminophen 10/325 mg Tablet PO PRN (04:49)
[2020-02-08 05:51] LABS: #Eosinphils 0.3 thou/uL (0.0-0.7); #Lymphocytes 1.2 thou/uL (1.20-3.40); #Monocytes 0.4 thou/uL (0.11-0.59); #Neutrophils 4.1 thou/uL (1.40-6.50); %Basophils 0.2 % (0.0-1.0); %Eosinophils 5.4 % (0.0-10.0); %Lymphocytes 19.7 % (21.0-51.0); %Monocytes 7.4 % (0.0-10.0); %Neutrophils 67.4 % (42.0-75.0); Hemoglobin 10.7 g/dL (14.0-18.0); Mean Corpuscular HGB CONC 33.8 g/dL (32.0-36.0); Mean Corpuscular Volume 88.7 fL (78.0-98.0); Platelet Count 163 thou/uL (130-400); RBC Distribution Width 12.7 % (11.5-14.5); Red Blood Cell (RBC) Count 3.56 mill/uL (4.70-6.10)
[2020-02-08 06:12] LABS: Anion Gap 13 mmol/L (10-20); BUN (Urea Nitrogen) 15 mg/dL (8.4-25.7); Calc. Creatinine Clearance 61 mL/min (70-130); Calcium 8.4 mg/dL (7.8-10.44); Carbon Dioxide 27 mmol/L (23-31); Chloride 99 mmol/L (98-107); Estimated GFR-MDRD 52; Glucose 126 mg/dL (83-110); Potassium 3.9 mmol/L (3.5-5.1); Sodium 135 mmol/L (136-145)
--- NOTE | 2020-02-08 07:42 | DIS ---
DATE OF ADMISSION: 02/04/2020 DATE OF DISCHARGE: 02/08/2020 ADMITTING DIAGNOSES: 1. Right renal mass, rule out right lower quadrant pelvic mass. 2. History of left nonobstructing renal calculi. 3. History of hypertension. DISCHARGE DIAGNOSES: 1. 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 History of left nonobstructing renal calculi. 3. History of hypertension. INPATIENT PROCEDURE: Status post right radical nephrectomy, exploratory laparotomy with General surgery, pelvic mass ruled out. DISPOSITION: To home to self-care. CONDITION: Stable. DISCHARGE MEDICATIONS: Include, 1. [place] 5/325. 2. Colace p.r.n. 3. Amlodipine 5 mg one p.o. daily. INPATIENT CONSULTATION: Hospitalist due to hypertension and hyperkalemia, adjustment of BP medications. BRIEF HOSPITAL COURSE: Mr. Perez is a pleasant 74-year-old male, who initially presented with right ureteral calculi. This was treated and resolved. He was found to have incidental right renal mass concerning for renal cell carcinoma. He has underwent appropriate workup, and this demonstrated possible right lower quadrant abdominal mass adjacent to small bowel. Carcinoid malignancy was ruled out, underwent exploratory laparotomy, nephrectomy. Laparotomy was performed by General surgery, Dr. Mattson, in which, there was no evidence of pelvic mass. He was found to have on intraoperative exploration that the mass that was read by Radiology was indeed an inguinal hernia mesh plug. He underwent right radical nephrectomy uneventfully. His pain was managed with epidural. He has been ambulating, epidural discontinued, and voiding without significant issues. His spironolactone was discontinued due to hyperkalemia, hospitalist consulted. Hyperkalemia resolved. The hospitalist did contact the primary care. The patient has had mild hypertension, therefore, his spironolactone was discontinued and transitioned to amlodipine 5 mg. He has been doing well, ambulating without significant issues. Pain adequately controlled with p.o. pain medication and is ready for discharge today. Followup appointment with me on February 11 at 11:45 for staple removal. Recommend follow up with . Dr. Ras Lopez, the patient's PCP for blood pressure check. He will continue amlodipine until followup with his PCP, in which, his blood pressure medication can be adjusted by Primary Care. Job ID: [id number] [facility]
[2020-02-08 08:06] VITALS: BP 170/80; TEMP 97.9
[2020-02-08] MEDS: metFORMIN 500 MG TAB PO SCH (08:38)
[2020-02-08] MEDS: Terazosin HCl 5 MG CAP PO SCH (08:38)
[2020-02-08] MEDS: Brimonidine Tartrate 0.2% Ophth Soln 5 ml Bottle EA EYE SCH (08:38)
[2020-02-08] MEDS: Timolol 0.5% Ophth Soln 5 ml Bottle EA EYE SCH (08:40)
[2020-02-08] MEDS ORDERED: Amlodipine 5 MG TAB PO SCH (09:00)
== END 2020-02-08 10:47 | disposition home or self-care (01) | DRG 657 ==
LOC: SURG A 02-04 05:47
PROVIDERS: ADMIT Urology; ATTEND Urology
PROC: 0TB00ZZ Excision of Right Kidney, Open Approach (ICD-10-PCS; principal; 2020-02-04)
DX: C64.1 Malignant neoplasm of right kidney, except renal pelvis (principal); N13.8 Other obstructive and reflux uropathy; I10 Essential (primary) hypertension; Z20.828 Contact with and (suspected) exposure to other viral communicable diseases; E87.5 Hyperkalemia; E11.9 Type 2 diabetes mellitus without complications; N40.0 Benign prostatic hyperplasia without lower urinary tract symptoms; N40.1 Benign prostatic hyperplasia with lower urinary tract symptoms; N52.9 Male erectile dysfunction, unspecified; M1A.9XX1 Chronic gout, unspecified, with tophus (tophi); R35.0 Frequency of micturition; N28.1 Cyst of kidney, acquired; N20.0 Calculus of kidney; K40.90 Unilateral inguinal hernia, without obstruction or gangrene, not specified as recurrent; Z87.442 Personal history of urinary calculi; Z79.899 Other long term (current) drug therapy; Z23 Encounter for immunization; Z79.84 Long term (current) use of oral hypoglycemic drugs; Z88.8 Allergy status to other drugs, medicaments and biological substances
CPT/HCPCS: 36415; 36416; 80048; 85025; 86850; 86900; 86901; 88307; J0690; J0696; J1100; J1200; J1580; J1815; J1940; J1956; J2001; J2250; J2405; J2704; J3010; J3490; Q0163; Q9968; S0020

== ENCOUNTER 2020-04-29 10:01 | Outpatient (CLI) | payer MEDICARE, BC ==
--- NOTE | 2020-04-29 11:03 | RAD ---
EXAM: Single view of the abdomen HISTORY: Kidney stones COMPARISON: 11/07/[address] abdomen/pelvis 12/04/2019 FINDINGS: Single view of the abdomen shows a nonspecific, nonobstructive bowel gas pattern. There is a 10 mm calcification projecting over the lower pole of the left kidney. The previously seen right ureteral stent has been removed. Surgical clips are seen and there is no longer visualization of the right renal shadow. Multiple phleboliths are seen in the pelvis. The bones are unremarkable. IMPRESSION: Stable left nephrolithiasis
== END 2020-04-29 10:02 | disposition home or self-care (01) ==
LOC: RAD 10:01
PROVIDERS: ATTEND Urology
DX: C64.1 Malignant neoplasm of right kidney, except renal pelvis (principal); N20.0 Calculus of kidney; M1A.9XX1 Chronic gout, unspecified, with tophus (tophi)
CPT/HCPCS: 36415; 74018; 80053; 81001; 84550

== ENCOUNTER 2020-05-16 10:38 | Outpatient (CLI) | payer MEDICARE, BC ==
[2020-05-16 12:36] LABS: Hemoglobin 12.9 g/dL (13.5-17.5); Mean Corpuscular HGB CONC 33.9 g/dL (32.0-36.0); Mean Corpuscular Hemoglobin 29.2 pg (27.0-33.0); Mean Platelet Volume 10.2 fl (7.4-10.4); Platelet Count 171 10x3/uL (150-450); RBC Distribution Width 13.6 % (11.5-14.5); Red Blood Cell (RBC) Count 4.42 10x6/uL (4.32-5.72); White Blood Cell (WBC) Count 6.6 10x3/uL (3.5-10.5)
[2020-05-16 13:05] LABS: Bilirubin Neg (Negative); Blood, Urine Negative (Negative); Clarity Clear (Clear); Glucose, Urine (Dipstick) Normal (Negative); Ketone, Urine Negative (Negative); Leukocyte Negative (Negative); Nitrite Negative (Negative); Protein, Urine (Dipstick) Negative (Neg-Trace); Urobilinogen Normal mg/dL (Less than 2)
[2020-05-16 13:12] LABS: PTT 26.8 sec (22.0-33.0); Prothrombin Time 10.9 sec (9.5-12.1)
[2020-05-16 13:14] LABS: Bacteria/HPF None Seen HPF (None Seen); RBC/HPF 0-3 HPF (0-3); Squamous Epithelial 0-3 HPF (0-3); WBC/HPF 0-3 HPF (0-3)
[2020-05-16 13:37] LABS: Anion Gap 11 mmol/L (10-20); BUN (Urea Nitrogen) 22 mg/dL (8.4-25.7); Calc. Creatinine Clearance 0 mL/min (70-130); Calcium 9.1 mg/dL (7.8-10.44); Carbon Dioxide 27 mmol/L (23-31); Chloride 103 mmol/L (98-107); Glucose 115 mg/dL (83-110); Potassium 5.3 mmol/L (3.5-5.1); Sodium 136 mmol/L (136-145)
--- NOTE | 2020-05-16 20:39 | EKG ---
Test Reason : Blood Pressure : / mmHG Vent. Rate : 063 BPM Atrial Rate : 063 BPM P-R Int : 174 ms QRS Dur : 086 ms QT Int : 422 ms P-R-T Axes : 063 -02 008 degrees QTc Int : 431 ms Normal sinus rhythm with sinus arrhythmia Minimal voltage criteria for LVH, may be normal variant Borderline ECG When compared with ECG of 30-JAN-2020 11:29, Criteria for Septal infarct are no longer Present Confirmed by Ortiz HOWELL ([id number]) on 05/16/2020 8:39:05 PM Referred By: CALLY Confirmed By:Ortiz HOWELL
[2020-05-17 02:31] LABS: SARS-CoV-2 PCR by NAA Not Detected (NotDetected)
== END 2020-05-16 10:39 | disposition home or self-care (01) ==
LOC: LABBT 10:38
PROVIDERS: ATTEND Urology
DX: Z01.818 Encounter for other preprocedural examination (principal); Z20.822 Contact with and (suspected) exposure to COVID-19; C64.1 Malignant neoplasm of right kidney, except renal pelvis; N20.0 Calculus of kidney; M1A.9XX1 Chronic gout, unspecified, with tophus (tophi)
CPT/HCPCS: 80048; 81001; 85027; 85610; 85730; 87086; 93005; U0003; U0005; 87635; 93010

== ENCOUNTER 2020-05-21 06:56 | Day surgery (SDC) | payer MEDICARE, BC ==
[2020-05-20 10:06] VITALS: BMI 27.1
[2020-05-21] MEDS ORDERED: Levofloxacin 500 mg/D5W 100 ml Premix Bag ONE (08:31)
[2020-05-21] MEDS ORDERED: Iothalamate Meglumine 60% 50 ML VIAL FS ONE (09:25)
[2020-05-21] MEDS ORDERED: Glycopyrrolate 0.2 MG/ML 5 ML SYRINGE ONE (09:27)
[2020-05-21] MEDS ORDERED: ePHEDrine 50 MG/ML VIAL ONE (09:27)
[2020-05-21] MEDS ORDERED: Rocuronium Bromide 10 MG/ML (10ML VIAL) ONE (09:27)
[2020-05-21] MEDS ORDERED: PROPOFOL 200 MG/20 ML VIAL ONE (09:27)
[2020-05-21] MEDS ORDERED: Lidocaine 1% PF 5 ML VIAL ONE (09:27)
[2020-05-21] MEDS ORDERED: PHENYLEPHRINE-NS 100 MCG/ML 10 ML SYRINGE ONE (09:27)
[2020-05-21] MEDS ORDERED: Fentanyl 100 MCG/2 ML VIAL ONE ×2 (09:31→11:18)
[2020-05-21] MEDS ORDERED: Phenazopyridine HCl 100 MG TAB ONE (11:18)
--- NOTE | 2020-05-21 11:38 | RAD ---
RETROGRADE PYELOGRAM: Date: 05/21/2020 HISTORY: Left stent placement. FINDINGS: This is a series of 17 images which show left ureteral stent placement which appears to be in good po sition on the final exam. Lower pole left renal calculus is identified. IMPRESSION: Left ureteral stent placement. POS: HARI
[2020-05-21] MEDS ORDERED: Nitroglycerin 2% Ointment 1 INCH/1 GM Packet ONE (12:25)
[2020-05-21] MEDS ORDERED: HYDROcodone/Acetaminophen 5/325 mg Tablet ONE (12:25)
--- NOTE | 2020-05-21 12:45 | OP ---
DATE OF PROCEDURE: 05/21/2020 PREOPERATIVE DIAGNOSIS: 1. A 74-year-old male with left lower pole 9 to 10 mm stone. 2. History of right renal cell carcinoma, status post right nephrectomy. POSTOPERATIVE DIAGNOSES: 1. A 74-year-old male with left lower pole 9 to 10 mm stone. 2. History of right renal cell carcinoma, status post right nephrectomy. PROCEDURES PERFORMED: Cystoscopy, left retrograde pyelogram, 6 x 30 double-J ureteral stent placement, balloon dilatation of the distal ureter, flexible ureteroscopy, pyeloscopy, laser lithotripsy of left lower pole stone, basket extraction of stone debris, 6 x 30 double-J ureteral stent with distal tail in situ. ANESTHESIA: General. COMPLICATIONS: None apparent. DISPOSITION: To recovery room in stable condition. SPECIMEN: Stone fragments for gross only. INTRAOPERATIVE FINDINGS: 1. As previous moderate bilobar hyperplasia of the prostate with median bar. No evidence of intravesical median lobe. UOs about 2 mm proximal to the bladder neck. 2. Large left lower pole renal calculi. INDICATIONS FOR PROCEDURE AND HISTORY: Mr. Perez is a pleasant 74-year-old male, whom I had previously treated a right ureteral calculi. He was found to have a right renal mass, underwent right nephrectomy consistent with renal cell carcinoma. As he has a solitary left kidney with a large left lower pole stone, the patient presents today for elective ureteroscopy and laser lithotripsy. Possible risk of secondary procedure as well as risks and complications of procedure including, but not limited to: Bleeding, pain, infection, injury to adjacent organs, ureteral/renal/kidney injury, sepsis, possible secondary infection has been discussed with the patient in detail. Alternatively, options of observation reviewed and desires to proceed with surgical intervention as above. DESCRIPTION OF PROCEDURE: After an informed consent was signed, the patient was taken to the operating room, placed in a dorsal lithotomy position with the genital area prepped and draped in the usual surgical sterile fashion. A 21-Kosovan cystoscope was utilized for cystoscopy, which demonstrated normal urethra. Prostatic urethra again demonstrated bilobar hyperplasia with moderate BPH, has a component of high median bar. However, no intravesical median lobe per se. At this time, an open-ended catheter was intubated in the left UO and a retrograde pyelogram was performed opacifying the collecting system. No evidence of hydronephrosis, stone seen in the left lower pole with an infundibular angle of 45 degrees. Stone was easily visible on fluoroscopy due to large stone and density. His previous stone moiety consistent with calcium oxalate monohydrate and 10% uric acid component. At this time, a 0.035 Sensor wire was placed into the left upper pole and a balloon dilatation of the distal intramural ureter was performed with [employer] 15-Kosovan dilator 6 cm. After appropriate dilatation, balloon was completely deflated and a 10-Kosovan dual-lumen access sheath was able to be passed to the proximal ureter without difficulty. A 0.035 Super Stiff wire was placed into the left upper pole. At this time, a 12/14-Kosovan navigator was gently passed to the level of the proximal ureter with no significant trauma. A flexible ureteroscope was then advanced and pyeloscopy was performed demonstrating a large left lower pole stone. A 273 micron ball-tip fiber was utilized with an energy of 1.6 to fragment the stone into multiple fragments. The stone did fragment, however, it was consistent with a very dense stone. We used a ZeroTip Nitinol basket to basket extract the stone debris. Some of the stone did migrate into the upper and mid pole. We surveyed all collecting system, and extracted all stone debris that was amendable to be basket extracted. What remained were dust-like stone debris that cannot be basket extracted. These should not be of clinical significance. We did perform pyeloscopy extensively to make sure that we extract any stone debris that would be a concern. The ureter was surveyed demonstrating no evidence of ureteral mucosa trauma of concern. No stone nidus seen was in the ureter as well. A 6 x 30 double-J ureteral stent was passed over the wire and wire subsequently removed. Bladder was completely emptied and he tolerated the procedure well and transported to the recovery room in stable condition. He will follow up with me next week, with KUB at least 1 hour prior to the appointment. If no obvious stone debris of concern, we will proceed with local cysto stent pull. Postop medications sent to the patient's pharmacy. Job ID: [id number]
[2020-05-21] MEDS ORDERED: Morphine 2 MG/ML VIAL ONE ×2 (13:12→14:07)
== END 2020-05-21 14:45 | disposition home or self-care (01) ==
LOC: SDC 06:56
PROVIDERS: ATTEND Urology
PROC: 0TC48ZZ Extirpation of Matter from Left Kidney Pelvis, Via Natural or Artificial Opening Endoscopic (ICD-10-PCS; principal; 2020-05-21)
PROC: 0T778DZ Dilation of Left Ureter with Intraluminal Device, Via Natural or Artificial Opening Endoscopic (ICD-10-PCS; 2020-05-21)
DX: N20.0 Calculus of kidney (principal); E11.9 Type 2 diabetes mellitus without complications; I10 Essential (primary) hypertension; N52.9 Male erectile dysfunction, unspecified; M1A.9XX1 Chronic gout, unspecified, with tophus (tophi); N40.1 Benign prostatic hyperplasia with lower urinary tract symptoms; R35.0 Frequency of micturition; N50.3 Cyst of epididymis; Z85.528 Personal history of other malignant neoplasm of kidney; Z79.84 Long term (current) use of oral hypoglycemic drugs; Z79.899 Other long term (current) drug therapy; Z88.8 Allergy status to other drugs, medicaments and biological substances; Z90.5 Acquired absence of kidney
CPT/HCPCS: 52356; 74420; 82365; 88300; J2270; J1956; J2704; J3010; J3490

== ENCOUNTER 2020-05-29 07:00 | Outpatient (CLI) | payer MEDICARE, BC | END 2020-05-29 07:01 | disposition home or self-care (01) | LOC: RAD 07:00 | PROVIDERS: ATTEND Urology | DX: C64.1 Malignant neoplasm of right kidney, except renal pelvis (principal); Z96.0 Presence of urogenital implants | CPT/HCPCS: 74018 ==

== ENCOUNTER 2020-09-10 12:18 | Outpatient (CLI) | payer MEDICARE, BC | END 2020-09-10 12:19 | disposition home or self-care (01) | LOC: BICULT 12:18 | PROVIDERS: ATTEND Urology | DX: C64.1 Malignant neoplasm of right kidney, except renal pelvis (principal); N20.0 Calculus of kidney; N28.1 Cyst of kidney, acquired; Z90.5 Acquired absence of kidney | CPT/HCPCS: 76770 ==